=== PATIENT | female | born 1955 | race Caucasian/White ===

== ENCOUNTER 2019-04-19 16:15 | Emergency (ER) | payer MEDICAID ==
[~2019-04-19] VITALS: Ht 162.6 cm; Wt 83.0 kg
[~2019-04-19 16:15] MED LIST: [UNRECOGNIZED DRUG - OTHER]; [UNRECOGNIZED DRUG - REMARK]
[2019-04-19] MEDS ORDERED: ERYT-111 PO (16:26)
--- NOTE | 2019-04-19 16:44 | NUR ---
RESHMA NOLAND AT BEDSIDE FOR MSE.
[2019-04-19] MEDS ORDERED: BENZONATATE 100 MG CAPSULE ONE (16:51)
[2019-04-19] MEDS ORDERED: ALBUTEROL SULFATE 2.5 MG/3 ML NEBU NEB ONE ×2 (17:00→18:00)
[2019-04-19] MEDS ORDERED: BENZONATATE 100 MG CAPSULE PO ONE (17:00)
[2019-04-19] MEDS ORDERED: ALBUTEROL SULFATE 2.5 MG/3 ML NEBU ONE ×2 (17:00→18:04)
--- NOTE | 2019-04-19 17:00 | NUR ---
RT AT BEDSIDE.
[2019-04-19] MEDS ORDERED: IPRATROPIUM BROMIDE 0.5 MG/2.5 ML NEBU NEB ONE (18:00)
[2019-04-19] MEDS ORDERED: IPRATROPIUM BROMIDE 0.5 MG/2.5 ML NEBU ONE (18:05)
--- NOTE | 2019-04-19 19:03 | NUR ---
SHIFT REPORT GIVEN TO FAWAD Workman RN.
--- NOTE | 2019-04-19 19:26 | NUR ---
PT IS BEING DISCHARGE TO HOME CONDITION STABLE DISCHARGE TEACHING GIVEN AND PRESCRIPTIONS TEACHING GIVEN ALSO VOICED HER UNDERSTANDING WELL DENIES PAIN
[2019-04-19 19:28] VITALS: BP 110/78
== END 2019-04-19 19:26 | disposition home or self-care (01) ==
LOC: ER 16:15
DX: J20.9 Acute bronchitis, unspecified (principal); I10 Essential (primary) hypertension; Z88.0 Allergy status to penicillin; Z79.2 Long term (current) use of antibiotics; Z79.899 Other long term (current) drug therapy
CPT/HCPCS: 71045; 93005; A4663; J3590